=== PATIENT | female | born 1965 | race Two or more races ===

== ENCOUNTER 2019-11-23 13:27 | Emergency (ER) | payer OTHER ==
[~2019-11-23] VITALS: Ht 165.1 cm; Wt 86.2 kg
[2019-11-23] MEDS ORDERED: SYNTHROID50 MCG (13:54)
[2019-11-23] MEDS ORDERED: METFORMIN HCL500 M3 (13:55)
== END 2019-11-23 18:00 | disposition home or self-care (01) ==
LOC: ER 13:27
DX: R42 Dizziness and giddiness (principal); R00.2 Palpitations; T50.995A Adverse effect of other drugs, medicaments and biological substances, initial encounter